=== PATIENT | female | born 1960 | race Caucasian/White ===

== ENCOUNTER 2017-07-19 12:24 | Emergency (ER) | END 2017-07-19 13:28 | disposition home or self-care (01) ==

== ENCOUNTER 2018-06-28 14:21 | Emergency (ER) | payer OTHER ==
[~2018-06-28] VITALS: Ht 170.2 cm; Wt 97.0 kg
[~2018-06-28 14:21] MED LIST: CEPH-443 PO
[2018-06-28 14:23] VITALS: BP 122/63; PULSE 80; RESP 18; Ht 170.2 cm; Wt 97.0 kg
--- NOTE | 2018-06-28 15:03 | ERD ---
ER Documentation Chief Complaint Chief Complaint vaginal discharge x 6 month HPI This is a 58-year-old female who presents to the ED with complaints of bilateral pelvic pain times 19 years status post vaginal delivery of her first child. Patient states that her pelvic pain is episodic, and occurs mostly in the morn ings. She describes this pain as "squeezing"and worse with strenuous activity. She states she was helping her aunt move around furniture 5 days ago when the pain became "unbearable ". She states hot baths help to relieve some of the pain. She states she has multiple pharmacy technologist for this issue however "they have not done anything ". She has not had any pelvic ultrasounds. Contrary to the nursing notes, patient does not report of any vaginal discharge. She does report some urinary frequency and urgency however no hematuria or back pain. No fevers, chills, abdominal pain, nausea, vomiting, chest pain, shortness of breath or any other symptoms. She states her last menstrual cycle was over 10 years ago. She is not sexually active. She has a history of depression and hypertension but is otherwise healthy and takes no other medications. ROS All systems reviewed and are negative except as per history of present illness. Medications Home Meds Active Scripts Ibuprofen* (Ibuprofen*) 400 Mg Tablet, 400 MG PO Q6H PRN for PAIN, #30 TAB Prov:RICHIE MARQUES PA-C 06/28/18 Cephalexin* (Keflex*) 500 Mg Capsule, 500 MG PO QID for 7 Days, CAP Prov:RIO THOMASON PA-C 07/19/17 PMhx/Soc Hx Alcohol Use: No Hx Substance Use: No Hx Tobacco Use: No Physical Exam Vitals Vital Signs Date Temp Pulse Resp B/P (MAP) Pulse Ox O2 O2 Flow FiO2 Time Delivery Rate 06/28/18 98.0 80 18 122/63 100 14:23 (82) Physical Exam Const: No acute distress Head: Atraumatic Eyes: Normal Conjunctiva ENT: Normal External Ears, Nose and Mouth. Neck: Full range of motion. No meningismus. Resp: Clear to auscultation bilaterally Cardio: Regular rate and rhythm, no murmurs Abd: Soft, non distended. Normal bowel sounds. + Moderate tenderness to palpation to bilateral inguinal area, right greater than left. No rebound, no guarding. Negative McBurney's. Skin: No petechiae or rashes Back: No midline or flank tenderness Ext: No cyanosis, or edema Neur: Awake and alert Psych: Normal Mood and Affect Results 24 hrs Laboratory Tests Test 06/28/18 15:11 06/28/18 15:15 Bedside Urine pH (LAB) 5.5 Bedside Urine Protein (LAB) Negative Bedside Urine Glucose (UA) Negative Bedside Urine Ketones (LAB) Negative Bedside Urine Blood Negative Bedside Urine Nitrite (LAB) Negative Bedside Urine Leukocyte Esterase (L Negative Urine Color STRAW Urine Clarity CLEAR Urine pH 6.0 Urine Specific [place] 1.006 Urine Ketones NEGATIVE mg/dL Urine Nitrite NEGATIVE mg/dL Urine Bilirubin NEGATIVE mg/dL Urine Urobilinogen NEGATIVE mg/dL Urine Leukocyte Esterase NEGATIVE Heri/ul Urine Hemoglobin NEGATIVE mg/dL Urine Glucose NEGATIVE mg/dL Urine Total Protein NEGATIVE mg/dl Procedures/MDM EMERGENT LABS AND DIAGNOSTIC STUDIES: Radiology Results as interpreted by Radiology: PROCEDURE: US Pelvis. CLINICAL INDICATION: Pain TECHNIQUE: Multiple sonographic images of the pelvis were obtained utilizing a transabdominal and endovaginal technique. The images were reviewed on a PACS workstation. COMPARISON: None. FINDINGS: The uterus is anteverted and measures 8.0 x 4.2 x 5.9 cm. There is heterogeneous echogenicity throughout the uterus compatible with diffuse myomatous involvement. There are multiple discrete fibroids, some of which are calcified. The largest is in the right submucosal body measuring 1.7 cm in diameter. Endometrial stripe complex is well demarcated measuring [address] There is no fluid within the canal.. . The right ovary has a normal echotexture and measures 2.3 x 1.5 x 1.5 cm . The left ovary has a normal echotexture and measures 2.7 x 0.8 by 1.6 cm. There is a 2.7 by 1.9 x 2.3 cm right paraovarian solid mass with calcifications. No solid pelvic masses seen. There is no free fluid in the pelvis. IMPRESSION: Fibroid uterus. 2.7 x 1.9 x 2.3 cm partially calcified right para ovarian mass. Question pedunculated serosal fibroid. Other etiologies cannot be ruled out. Consider MRI for more definitive diagnosis. Normal right ovary. .Nima Archibald MD, Date Time Electronically viewed and signed by .Nima Archibald MD, on 06/28/2018 17:06 Nursing Notes Reviewed. Previous Medical Records requested via the Electronic Health Record. EMERGENCY DEPARTMENT COURSE / MEDICAL DECISION MAKIN-year-old female presents to the ED with chronic bilateral pelvic pain times several years. Differential diagnosis for this patient includes pyelonephritis, ovarian cyst rupture, ovarian torsion, strangulated hernia, incarcerated hernia, as well as many others. Physical exam is essentially unremarkable. No signs of an acute surgical abdomen. UA without any signs of infection. Pelvic ultrasound revealed a partially calcified ovarian mass on the right however not likely the source of her pain. I did offer CT abdomen of the abdomen for further evaluation however patient deferred. She was given a copy of her results and told to follow-up with an MAINTENANCE WORKER [employer]SE TRA[employer]ER. A referral list was provided. Patient was pain-free and not want any pain medications for here. She was therefore discharged home with a prescription for ibuprofen which she states has helped at home. Patient does not need any further emergent workup and is stable for o utpatient follow-up with her MAINTENA[employer] WORK[employer]ER and primary care physician. Strict return precautions are given. Prior to discharge, patients vital signs have been reviewed PRESCRIPTIONS: Ibuprofen SPECIALIST FOLLOW UP RECOMMENDED: MA[employer]TE[employer] Patient has been advised to follow up with primary care in 1-2 days. Departure Diagnosis: Primary Impression: Chronic pelvic pain in female Condition: Stable Patient Instructions: Pelvic Pain, Unknown Cause Referrals: MA[employer]TE[employer] WORK[employer]ER REFERRAL LIST Additional Instructions: Thank you very much for allowing us to participate in your care. Your health and safety is our top priority at [facility]. Call your primary care doctor TOMORROW for an appointment during the next 2-4 days and bring all the information and medications prescribed. If the symptoms get worse and your provider is unavailable, return to the Emergency Department immediately. RICHIE MARQUES PA-C Jun 28, 2018 15:03
[2018-06-28] MEDS ORDERED: IBUP-1541 PO (17:26)
== END 2018-06-28 17:42 | disposition home or self-care (01) ==
LOC: FTE 14:21
DX: R10.2 Pelvic and perineal pain (principal)
CPT/HCPCS: 76830; 76856; 81003; Z7502